=== PATIENT | male | born 1960 | race Caucasian/White ===

== ENCOUNTER 2024-01-07 13:32 | Outpatient (AMB) | payer OTHER, SELFPAY ==
[2024-01-07 13:40] VITALS: BP 180/98; PULSE 87; O2SAT 98; BMI 30.7
--- NOTE | 2024-01-07 13:40 | MHC.PC.OV ---
Vital Signs 01/07/24 13:40 01/07/24 14:18 Height 5 ft 5.94 in Weight 190 lb BMI 30.7 BP 180/98 H 190/100 H Blood Pressure Location Lt brachial Lt brachial Position Sitting Sitting Pulse 87 Pulse Source Pulse Oximeter Pulse Oximetry (%) 98 Oxygen Delivery Method Room Air Intake Visit Reasons: New patient Establish care Fitness Technician Required: No Palm And Back Forger: Not Required per policy Accompanied by: Self / Same As Patient Allergies bee pollen [BEE STINGS] Allergy (Unknown, Verified 01/07/24 14:09) SWELLING Bee sting Allergy (Unknown, Uncoded 01/07/24 14:09) anaphylaxis Medication List - Last Reconciled 01/07/24 by Les Wells MD No Known Home Meds Tobacco use date assessed: 01/07/24 Dental Screening Dental Screen Date: 01/07/24 Did you have a dental visit in the last 12 months?: No Did you have a dental problem in the last 6 months where you did not have access to dental care?: No Was dental information given to patient?: Patient has dentist HPI New patient Establish care HPI Details Patient comes in today to REestablish care - he was last seen here on 06/03/2019 States that he currently feels okay except for increased right shoulder pain, which has been going on for a while now He does not recall any recent injury or trauma to his shoulder He denies any headaches or dizziness He denies any chest pains, no SOB No nausea/vomiting, no abdominal pain No change in bowel habits noted He denies any acute urinary symptoms He had his screening colonoscopy last done with Dr. Negron back on 12/12/2016 - is recommended to get repeat colonoscopy in 10 years (2026) [facility] Medical History (Updated 01/31/24 @ 16:11 by Les Wells MD) Obesity (BMI 30-39.9) Dyslipidemia Surgical History (Updated 01/31/24 @ 16:05 by Les Wells MD) History of excision of lesion History of facial surgery History of lumbar spinal fusion Hx of fusion of cervical spine Hx of colonoscopy Family History (Updated 01/31/24 @ 15:57 by Les Wells MD) Father Cancer of kidney Pericarditis Mother Lung cancer Other Cancer Social History (Updated 01/31/24 @ 16:10 by Les Wells MD) Alcohol intake: current Alcohol intake frequency: holidays/special occasions only Patient Tobacco Use Status: Former Tobacco user e-Cigarette/Vaping Use: Never Used service: No Current occupational status: employed Cognitive needs: No Hearing needs: No Vision needs: Yes (glasses) Questionnaire PHQ-9 Over the last 2 weeks, how often have you been bothered by any of the following problems? 1. Little interest or pleasure in doing things: not at all 2. Feeling down, depressed, or hopeless: not at all 3. Trouble falling or staying asleep, or sleeping too much: not at all 4. Feeling tired or having little energy: not at all 5. Poor appetite or overeating: not at all 6. Feeling bad about yourself - or that you are a failure or have let yourself or your family down: not at all 7. Trouble concentrating on things, such as reading the newspaper or watching television: not at all 8. Moving or speaking so slowly that other people could have noticed. Or the opposite - being so fidgety or restless that you have been moving around a lot more than usual: not at all 9. Thoughts that you would be better off or of hurting yourself in some way: not at all Total score: 0 Depression Screening Interpretation: Negative Depression Screening Done: Yes 24639 - PHQ-9 Billing: Yes Source: Developed by Drs. Jimmie Rivera, Cynthia Degroot, Lázaro Finney and colleagues, with an educational desirae from [employer]. Thrive Questionnaire Date Thrive assessed: 01/07/24 I am a: Patient What is your living situation today?: I have a steady place to live Within the past 12 months, did the food you bought not last and you didn't have the money to get more?: Never true Within the past 12 months, did you worry whether your food would run out before you got money to buy more?: Never true Do you have trouble paying for medicines?: No Do you have trouble getting transportation to medical appointments?: No Do you have trouble paying your heating and electricity bill?: No Do you have trouble taking care of your child, family member or friend?: No Do you have trouble with day-to-day activities such as bathing, preparing meals, shopping, managing finances, etc.?: No Are you currently unemployed and looking for a job?: No Are you interested in more education?: No Please select the resources that you would like help with: None Currently or been in a relationship where the following occur: no concerns reported THRIVE Score: 0 AUDIT C Alcohol Use Questionnaire (AUDIT-C) 1. How often do you have a drink containing alcohol?: Never 3. How often do you have six or more drinks on one occasion?: Never Total Score: 0 Score Reviewed/Action Taken: Yes ADAMARIS-7 AMB Questionnaire ADAMARIS-7 Date ADAMARIS - 7 assessed: 01/07/24 Feeling nervous, anxious, or on edge: 0 = Not at all Not being able to stop or control worryin = Not at all Worrying too much about different things: 0 = Not at all Trouble relaxin = Not at all Being so restless that it is hard to sit still: 0 = Not at all Becoming easily annoyed or irritable: 0 = Not at all Feeling afraid as if something awful might happen: 0 = Not at all Total ADAMARIS-7 score (0-4 normal; 5-9 mild; 10-14 moderate; 15-21 severe): 0 Source: Developed by Drs. Jimmie Rivera, Cynthia Degroot, Lázaro Finney and colleagues, with an educational desirae from [employer]. Review of Systems Const Denies chills, Denies fatigue, Denies fever(s), Denies headache(s), Denies malaise and Denies weakness Eyes Denies blurry vision, Denies change in vision, Denies irritation and Denies itchy eyes ENT Denies dysphagia, Denies dizziness, Denies otalgia, Denies headache(s), Denies nasal congestion, Denies neck pain, Denies odynophagia and Denies sore throat Card Denies chest pain, Denies rapid heart rate, Denies irregular heart rhythm, Denies palpitations and Denies dyspnea Resp Denies chest congestion, Denies cough, Denies dyspnea and Denies wheezing GI Denies abdominal pain, Denies bloating, Denies constipation, Denies dysphagia, Denies heartburn, Denies diarrhea, Denies nausea, Denies odynophagia and Denies vomiting Denies hematuria, Denies difficulty urinating, Denies dysuria, Denies urinary frequency and Denies urinary urgency Musc Denies back pain, Reports arthralgias (right shoulder), Denies joint swelling, Denies muscle weakness and Denies neck pain Skin/Breast Denies change in pigmentation, Denies lesions, Denies rash and Denies unusual bruising Neuro Denies dizziness, Denies headache(s), Denies paresthesias and Denies weakness Endo Denies fatigue and Denies palpitations Aller/Immun Denies itchy eyes and Denies wheezing Physical exam (Primary Care) Vital Signs: Last Vital Signs Pulse 87 01/07/24 13:40 BP 190/100 H 01/07/24 14:18 Pulse Ox 98 01/07/24 13:40 Oxygen Delivery Method Room Air 01/07/24 13:40 BMI result Body Mass Index 30.7 Tobacco/Smoking Status: Tobacco use Status Tobacco use date assessed 01/07/24 01/07/24 13:50 Patient Tobacco Use Status Former Tobacco user 01/07/24 13:50 e-Cigarette/Vaping Use Never Used 01/07/24 13:50 PHQ-9: PHQ-9 Score PHQ-9: Total score 0 01/07/24 14:16 Depression Screening Interpretation: Negative Thrive Assessment: Date of Thrive Assessment Date Thrive assessed 01/07/24 01/07/24 13:50 Currently or been in a relationship where the following occur: no concerns reported Const General: no acute distress, alert and awake Orientation/consciousness: patient oriented x3 HENMT Head: Yes normocephalic and Yes atraumatic Ears: external ears normal, TM's normal bilaterally and EAC's normal General nose exam: No nasal discharge present Face and sinus: Yes normal facial exam and Yes sinuses nontender Teeth and gingiva: dentition normal Throat: Yes posterior oropharynx normal and Yes tonsils normal (no TP congestion) Eyes Eyelids: Yes eyelids normal Conjunctivae: conjunctivae normal Pupils: Equal, round and reactive pupils present EOM: EOMs intact bilaterally Neck Neck: Yes no lymphadenopathy and Yes supple Thyroid: Thyroid normal Resp Auscultation: clear to auscultation bilaterally, no rales and no wheezes Cardio Rate: regular rate Rhythm: regular rhythm Heart sounds: no murmurs GI Palpation (GI): Soft to palpation, nontender and No hepatosplenomegaly present Auscultation: normal bowel sounds General: Yes no CVA tenderness Back/Spine/Pelvis Back: no CVA tenderness Thoracic/Lumbar Spine: thoracic and lumbar spine normal to inspection Skin Lesions: no lesions Rashes: no rashes Neuro General: patient oriented x3, moves all extremities, no focal motor deficits and CN's II-XI intact bilaterally Cranial nerves: Yes Equal, round and reactive pupils present Cognition (Neuro): normal cognition Gait exam (Neuro): Normal gait present Extrem General: Yes no clubbing, cyanosis or edema Right upper extremity: shoulder/upper arm Details: tenderness Location: of the A-C joint and normal ROM; no swelling Assessment and Plan Assessment & Plan (1) Annual physical exam: Code(s): Z00.00 - Encounter for general adult medical examination without abnormal findings Plan: Check labs He is up-to-date with his screening colonoscopy - is not due for repeat until 2026 (2) Elevated blood pressure reading without diagnosis of hypertension: Code(s): R03.0 - Elevated blood-pressure reading, without diagnosis of hypertension Plan: Discussed low sodium diet - goal is systolic BP of 120 mm or less Have advised patient to continue monitoring his blood pressure regularly but will have our nurse navigator check back with him as well for BP monitoring and education (3) Dyslipidemia: Code(s): E78.5 - Hyperlipidemia, unspecified Plan: Reinforced low cholesterol diet Will recheck his fasting lipids HUGO for follow up (4) Right shoulder pain: Code(s): M25.511 - Pain in right shoulder Qualifiers: Chronicity: unspecified Qualified Code(s): M25.511 - Pain in right shoulder Plan: Will send him for x-rays of the right shoulder for further evaluation (5) Obesity (BMI 30-39.9): Code(s): E66.9 - Obesity, unspecified Plan: Reinforced diet/exercise as tolerated/lose weight Plan Follow up in 4 months Orders: Orders Comprehensive Corea. Panel Fast 01/12/24 E78.00 - Pure hypercholesterolemia, unspecified, Z00.00 - Encounter for general adult medical examination without abnormal findings Lipid Panel 01/12/24 E78.00 - Pure hypercholesterolemia, unspecified, Z00.00 - Encounter for general adult medical examination without abnormal findings UA CC w/rflx Micro + Cult 01/12/24 R30.0 - Dysuria, Z00.00 - Encounter for general adult medical examination without abnormal findings Prostate Specific Antigen 01/12/24 N40.0 - Benign prostatic hyperplasia without lower urinary tract symptoms, Z00.00 - Encounter for general adult medical examination without abnormal findings Hemoglobin A1c 01/12/24 E11.9 - Type 2 diabetes mellitus without complications, Z00.00 - Encounter for general adult medical examination without abnormal findings XR shoulder RT min 2V 01/07/24 M25.511 - Pain in right shoulder Complete Blood Count Auto Diff 01/12/24 D64.9 - Anemia, unspecified, Z00.00 - Encounter for general adult medical examination without abnormal findings TSH reflex Free T4 01/12/24 E78.00 - Pure hypercholesterolemia, unspecified, Z00.00 - Encounter for general adult medical examination without abnormal findings Vitamin D 25-OH Total 01/12/24 E55.9 - Vitamin D deficiency, unspecified, Z00.00 - Encounter for general adult medical examination without abnormal findings Coding Level of Care Code New Pt Prev Care 40-64y(90161) Diagnoses Annual physical exam Z00.00 Elevated blood pressure reading without diagnosis of hypertension R03.0 Dyslipidemia E78.5 Right shoulder pain, unspecified chronicity M25.511 Chronicity: unspecified Obesity (BMI 30-39.9) E66.9
[2024-01-07 14:18] VITALS: BP 190/100
== END 2024-01-07 14:33 | disposition home or self-care (01) ==
PROVIDERS: PCP Internal Medicine; Visit Provider Internal Medicine
DX: Z00.00 Encounter for general adult medical examination without abnormal findings (principal); R03.0 Elevated blood-pressure reading, without diagnosis of hypertension; E78.5 Hyperlipidemia, unspecified; M25.511 Pain in right shoulder
CPT/HCPCS: 99386

== ENCOUNTER 2024-01-07 14:40 | Outpatient (REF) | payer OTHER, SELFPAY ==
--- NOTE | ~2024-01-07 | XR_ITS ---
EXAMINATION: XR SHOULDER, RIGHT CLINICAL INFORMATION: Right shoulder pain. COMPARISON: None available. TECHNIQUE: 3 views of the right shoulder. FINDINGS: Alignment is anatomic. Mild glenohumeral and moderate acromioclavicular degenerative changes. No fracture or suspicious osseous lesion. The visualized right chest is clear. XR/XR shoulder RT min 2V IMPRESSION: Mild glenohumeral and moderate acromioclavicular osteoarthritis.
== END 2024-01-07 14:41 | disposition home or self-care (01) ==
LOC: HO.XRAY 14:40
PROVIDERS: PCP Internal Medicine; Visit Provider Internal Medicine
DX: M25.511 Pain in right shoulder (principal)
CPT/HCPCS: 73030

== ENCOUNTER 2024-01-12 07:03 | Outpatient (REF) | payer OTHER, SELFPAY ==
[2024-01-12 07:12] LABS: MANUAL DIFF FLAG NO
[2024-01-12 07:53] LABS: Basophils Absolute Auto 0.1 X10*3/uL (0.0-0.2); Basophils Percent Auto 0.5 % (0-2); Eosinophils Absolute Auto 0.3 X10*3/uL (0.0-0.4); Hematocrit 46.3 % (42.0-52.0); Hemoglobin 15.7 g/dl (14.0-18.0); Imm Gran Abs Auto 0.06 X10*3/uL (0.00-0.03); Imm Gran Pct Auto 0.6 % (0.0-0.4); Lymphocytes Absolute Auto 3.8 X10*3/uL (1.2-4.9); Lymphocytes Percent Auto 39.4 % (20-40); Mean Corpuscular HGB Conc 33.9 g/dl (31.0-36.0); Mean Corpuscular Hemoglobin 33.3 pg (27.0-33.0); Mean Corpuscular Volume 98.3 fL (80.0-98.0); Mean Platelet Volume 9.7 fL (9.4-12.4); Monocytes Absolute Auto 0.8 X10*3/uL (0.1-1.2); Neutrophils Absolute Auto 4.7 x10*3/uL (2.0-8.3); Neutrophils Percent Auto 48.5 % (45-73); Platelet Count 318 X10*3/uL (160-400); Red Blood Count 4.71 X10*6/uL (4.60-5.80); Red Cell Distribution Width 12.4 % (11.0-16.0); White Blood Count 9.7 X10*3/uL (4.8-10.8)
[2024-01-12 08:01] LABS: Estimated Average Glucose 108 mg/dL; Hemoglobin A1c % 5.4 % (<6.0)
[2024-01-12 08:49] LABS: Alanine Aminotransferase 23 U/L (0-40); Albumin Level 4.5 g/dL (3.5-5.0); Alkaline Phosphatase 82 U/L (39-117); Anion Gap 14 (12-20); Aspartate Amino Transferase 23 U/L (5-37); Bilirubin Total 0.6 mg/dL (0.0-1.0); Blood Urea Nitrogen 16 mg/dL (9-16); Carbon Dioxide 24 mmol/L (22-29); Chloride 107 mmol/L (96-108); Cholesterol 189 mg/dL (<200); Estimated Glomerular Filt Rate > 60; Glucose Fasting 114 mg/dL (60-99); HDL Cholesterol 47 mg/dL (>40); LDL Cholesterol Calculated 132 mg/dL (<100); Potassium 3.9 mmol/L (3.3-5.1); Sodium 141 mmol/L (135-145); Total Protein 7.2 g/dL (6.5-8.0); Triglycerides 53 mg/dL (<150)
[2024-01-12 08:56] LABS: Prostate Specific Antigen 7.44 ng/mL (<0.05-4.0)
[2024-01-12 09:12] LABS: TSH reflex Free T4 0.94 uIU/mL (0.32-4.0); Vitamin D 25-OH Total 22.8 ng/mL (>30)
[2024-01-12 09:39] LABS: Appearance Urine Clear; Color Urine Yellow; Glucose Urine UA Negative (Negative); Leukocyte Esterase Urine Negative (Negative); Nitrite Urine Negative (Negative); Urine Blood Negative (Negative); Urine Ketones Negative (Negative); Urine Protein Negative (Neg-Trace)
== END 2024-01-12 07:04 | disposition home or self-care (01) ==
LOC: HO.LAB 07:03
PROVIDERS: PCP Internal Medicine; Visit Provider Internal Medicine
DX: R30.0 Dysuria (principal); Z00.00 Encounter for general adult medical examination without abnormal findings; N40.0 Benign prostatic hyperplasia without lower urinary tract symptoms; D64.9 Anemia, unspecified; E78.00 Pure hypercholesterolemia, unspecified; E55.9 Vitamin D deficiency, unspecified; E11.9 Type 2 diabetes mellitus without complications; Z12.5 Encounter for screening for malignant neoplasm of prostate
CPT/HCPCS: 36415; 80053; 80061; 81003; 82306; 83036; 84153; 84443; 85025

== ENCOUNTER 2024-02-08 15:03 | Outpatient (AMB) | payer OTHER, SELFPAY ==
--- NOTE | 2024-02-08 15:42 | A.OFFVIS_ITS ---
Intake Visit Reasons: elevated PSA Intake Note: New patient is present for Elevated PSA Antibiotic Allergies: None Allergies bee pollen [BEE STINGS] Allergy (Unknown, Verified 02/26/24 14:25) SWELLING Bee sting Allergy (Unknown, Uncoded 02/26/24 14:25) anaphylaxis HPI Comments Details: Yefri is a pleasant male. He is a patient of Dr. Wells. He is seen for the following urologic conditions Elevated PSA Discussed options including biopsy Versus trial finasteride He would like to move ahead with finasteride trial of 4 month follow-up PSA Understands no coffee the morning of test and no sex the night before Elevated PSA PSA 01/17 7.4 PFSH Medical History (Updated 02/27/24 @ 07:46 by Daniel Lopez MD) Obesity (BMI 30-39.9) Dyslipidemia Surgical History (Updated 01/31/24 @ 16:05 by Les Wells MD) History of excision of lesion History of facial surgery History of lumbar spinal fusion Hx of fusion of cervical spine Hx of colonoscopy Family History (Updated 01/31/24 @ 15:57 by Les Wells MD) Father Cancer of kidney Pericarditis Mother Lung cancer Other Cancer Social History (Updated 01/31/24 @ 16:10 by Les Wells MD) Alcohol intake: current Alcohol intake frequency: holidays/special occasions only Patient Tobacco Use Status: Former Tobacco user e-Cigarette/Vaping Use: Never Used service: No Current occupational status: employed Cognitive needs: No Hearing needs: No Vision needs: Yes (glasses) Review of Systems Const Denies chills and Denies fever(s) Card Reports no additional complaints and Denies syncope Resp Denies cough GI Denies abdominal pain and Denies heartburn Reports as per HPI and Denies change in libido Neuro Denies syncope Psych Denies change in libido Endo Denies change in libido Physical Exam Const General: cooperative, healthy appearing, comfortable and no acute distress Orientation/consciousness: patient oriented x3 HEENT Face and sinus: Yes normal facial exam Mouth: moist mucous membranes Neck Neck: Yes normal visual inspection, Yes full ROM and Yes trachea midline Chest Chest palpation & inspection: normal inspection of the chest Resp Effort & Inspection: normal respiratory effort, able to speak in complete sentences and no respiratory distress GI Inspection: Yes normal to inspection Back/Spine/Pelvis Cervical Spine: normal cervical lordosis Thoracic/Lumbar Spine: thoracic and lumbar spine normal to inspection Skin General skin exam: no rashes or lesions noted Neuro General: patient oriented x3, gait normal, tone normal and moves all extremities Extrem General: Yes normal to inspection and Yes capillary refill normal Assessment & Plan Assessment & Plan (1) Elevated prostate specific antigen less than 10 ng/ml: Code(s): R97.20 - Elevated prostate specific antigen [PSA] Category: Medical Plan Finasteride 4 month follow-up PSA Orders: Orders Prostate Specific Antigen 4 Months R97.20 - Elevated prostate specific antigen [PSA] Medications: New finasteride 5 mg PO DAILY 90 tabs 1RF 90 days R97.20 - Elevated prostate sp ecific antigen [PSA], N40.1 - Benign prostatic hyperplasia with lower urinary tract symptoms, N13.8 - Other obstructive and reflux uropathy, R33.9 - Retention of urine, unspecified Patient Instructions: Imaging studies, laboratory and physical exam results were discussed and reviewed in detail. No major barriers to patient understanding were identified. An opportunity to ask questions regarding the treatment plan was provided. All questions were answered. The patient expressed understanding and agreement with the above treatment plan. The patient is aware they should contact our office by phone for worsening of their current condition or the appearance of new urologic symptoms. Compliance is encouraged with any medications and followup testing that is ordered. It is a privilege to participate in the urologic care of your patient. If you have any questions or concerns regarding treatment for the above conditions, or other urologic issues, please do not hesitate to contact me. The office telephone contact is [phone]. This note is constructed using voice recognition software. While every effort has been made to ensure accuracy voip network technician errors may have been included. Yours sincerely, Dr Froy Boswell MD, [facility] - Urology Providers of Expert, Compassionate Care for the Genitourinary System Coding Level of Care Code New Pt Level 4 (21306) Diagnoses Elevated prostate specific antigen less than 10 ng/ml R97.20
== END 2024-02-08 16:34 | disposition home or self-care (01) ==
PROVIDERS: PCP Internal Medicine; Visit Provider Urology
DX: R97.20 Elevated prostate specific antigen [PSA] (principal)
CPT/HCPCS: 99204

== ENCOUNTER → 2024-02-08 15:03 | Outpatient (BNVA) | payer OTHER, SELFPAY | PROVIDERS: PCP Internal Medicine; Visit Provider Urology ==

== ENCOUNTER 2024-02-26 14:20 | Outpatient (AMB) | payer OTHER, SELFPAY ==
--- NOTE | 2024-02-26 14:25 | A.OFFVIS_ITS ---
Intake Visit Reasons: New Pt - right shoulder pain Intake Note: Yefri is a 63 year old male who presents today as a new patient with complaints of progressively worsening right shoulder pain. He describes his pain as sharp in nature. Most of the pain is along the lateral aspect of his right shoulder. He does report intermittent weakness when lifting his right hand above shoulder height. The patient states that he aggravated his shoulder in July of 2023 when his right shoulder hyperextended when he slipped while lifting a big sign over his head. He has done physical therapy exercises which aggravated his pain. He has also tried Tylenol and anti-inflammatory medicines which gave him minimal relief. injections. Allergies bee pollen [BEE STINGS] Allergy (Unknown, Verified 02/26/24 14:25) SWELLING Bee sting Allergy (Unknown, Uncoded 02/26/24 14:25) anaphylaxis Medication List - Last Reconciled 02/27/24 by Daniel Lopez MD cholecalciferol (vitamin D3) 50 mcg PO DAILY 90 days finasteride 5 mg PO DAILY 90 days [facility] Medical History (Updated 02/27/24 @ 07:46 by Daniel Lopez MD) Obesity (BMI 30-39.9) Dyslipidemia Surgical History (Updated 01/31/24 @ 16:05 by Les Wells MD) History of excision of lesion History of facial surgery History of lumbar spinal fusion Hx of fusion of cervical spine Hx of colonoscopy Family History (Updated 01/31/24 @ 15:57 by Les Wells MD) Father Cancer of kidney Pericarditis Mother Lung cancer Other Cancer Social History (Updated 01/31/24 @ 16:10 by Les Wells MD) Alcohol intake: current Alcohol intake frequency: holidays/special occasions only Patient Tobacco Use Status: Former Tobacco user e-Cigarette/Vaping Use: Never Used service: No Current occupational status: employed Cognitive needs: No Hearing needs: No Vision needs: Yes (glasses) Physical Exam Const Other: Well-nourished well-developed very friendly male awake alert and oriented x3 in no acute distress Extrem Other: Bilateral upper extremity examination shows good capillary refill, no skin lesions noted, normal sensation light touch Right shoulder examination shows full range of motion when compared to his left shoulder, 4+ out of 5 strength with supraspinatus testing, positive impingement signs, no instability Office Procedures Joint Injection/Drain Joint Injection/Drain Primary Site: right shoulder Prep: site was prepped using aseptic technique Injected: 40 mg of, DepoMedrol and 1% plain lidocaine Procedure: The patient tolerated the procedure well Coding - Large joint Procedure code (CPT) selection complete Results Reviewed Results Reviewed: X-rays of the patient's right shoulder show severe acromioclavicular joint narrowing, a type 2 acromion, no acute bony abnormalities Assessment & Plan Assessment & Plan (1) Impingement of right shoulder: Code(s): M25.811 - Other specified joint disorders, right shoulder Category: Medical Plan Mr. Benz presents with right shoulder pain due to impingement syndrome. I had a lengthy discussion with the patient regarding the treatment options. The risks and benefits of a right shoulder cortisone injection were discussed at length with the patient. The patient wished to proceed. He tolerated the injection well. He will continue with his range of motion exercises to prevent stiffness. He will follow up with me on an as-needed basis should his symptoms not plateau at an unacceptable level over the next few months. Feel free to call me at any time should questions regarding his orthopedic management arise. Thank you very much for asking me to see this very friendly gentleman. I spent 22 minutes in reviewing the patient's records and imaging studies, seeing the patient and documenting in the medical record. Orders: Orders AMB Joint Injection/Aspiration 02/26/24 M25.811 - Other specified joint disorders, right shoulder Coding Level of Care Code New Pt Level 3 (03526) Diagnoses Impingement of right shoulder M25.811 CPT Codes Coding - Large joint: 38242 - Large joint ([id number])
== END 2024-02-26 15:01 | disposition home or self-care (01) ==
PROVIDERS: PCP Internal Medicine; Visit Provider Orthopaedic Surgery
DX: M75.42 Impingement syndrome of left shoulder (principal)
CPT/HCPCS: 20610; 99203

== ENCOUNTER → 2024-02-26 14:20 | Outpatient (BNVA) | payer OTHER, SELFPAY | PROVIDERS: PCP Internal Medicine; Visit Provider Orthopaedic Surgery | DX: M75.41 Impingement syndrome of right shoulder (principal) | CPT/HCPCS: 20610; J1010 ==

== ENCOUNTER 2024-05-02 18:10 | Outpatient (REF) | payer OTHER, SELFPAY ==
--- NOTE | ~2024-05-02 | MR_ITS ---
EXAMINATION: MR SHOULDER WITHOUT CONTRAST, RIGHT CLINICAL INFORMATION: Right shoulder pain and crepitus. COMPARISON: Right shoulder radiographs dated 01/07/2024. TECHNIQUE: MRI of the shoulder without contrast was performed on a high-field scanner. FINDINGS: Evaluation somewhat limited secondary to patient motion. ROTATOR CUFF: Moderate infraspinatus tendinosis with articular surface partial tearing measuring approximately 2.7 x 2.0 cm with a small, full-thickness component to the tear posteriorly. Fluid signal extends proximally along the bursal surface of the posterior tendon fibers. Mild supraspinatus tendinosis. Moderate subscapularis tendinosis with distal articular surface partial tearing measuring 3.4 cm in ML dimension. No muscle atrophy or fatty infiltration. BICEPS: Fluid within the proximal long head biceps tendon sheath, which could represent mild tenosynovitis. Intra-articular long head biceps tendinosis. CORACOACROMIAL ARCH: The undersurface of the acromion is flat with no subacromial spur. Severe acromioclavicular osteoarthritis. LABRUM/CAPSULE: Linear fluid signal within the undersurface of the superior and posterosuperior labrum, consistent with a nondisplaced undersurface tear. Intact inferior joint capsule. GLENOHUMERAL JOINT/MARROW: Mild reticular cartilage signal heterogeneity with tiny marginal osteophytes. Degenerative cystic change at the greater tuberosity. Trace glenohumeral joint effusion. MR/MR shoulder RT wo con IMPRESSION: 1. Moderate infraspinatus tendinosis with articular surface partial tearing measuring 2.7 x 2.0 cm with a small full-thickness component to the tear posteriorly. Fluid signal extends proximally along the bursal surface of the posterior tendon fibers. Mild supraspinatus tendinosis. Moderate subscapularis tendinosis with distal articular surface partial tearing measuring 3.4 cm in ML dimension. 2. Mild proximal long head biceps tenosynovitis with intra-articular long head biceps tendinosis. 3. Severe acromioclavicular osteoarthritis. 4. Nondisplaced undersurface tear of the superior and posterosuperior labrum. 5. Mild glenohumeral osteoarthritis and trace joint effusion. Electronically signed by: James Zamudio MD 05/06/2024 12:18 PM EDT
== END 2024-05-02 18:11 | disposition home or self-care (01) ==
LOC: HO.MRI 18:10
PROVIDERS: PCP Internal Medicine; Visit Provider Orthopaedic Surgery
DX: M25.811 Other specified joint disorders, right shoulder (principal)
CPT/HCPCS: 73221

== ENCOUNTER 2024-05-31 07:07 | Outpatient (REF) | payer OTHER, SELFPAY | END 2024-05-31 07:08 | disposition home or self-care (01) | LOC: HO.LAB 07:07 | PROVIDERS: PCP Internal Medicine; Visit Provider Urology | DX: R97.20 Elevated prostate specific antigen [PSA] (principal); Z12.5 Encounter for screening for malignant neoplasm of prostate | CPT/HCPCS: 36415; 84153 ==

== ENCOUNTER 2024-06-05 14:35 | Outpatient (AMB) | payer OTHER, SELFPAY ==
--- NOTE | 2024-06-05 14:37 | MHC.OFFVIS ---
Intake Visit Reasons: Right shoulder pain and weakness Intake Note: Yefri is a 63 year old male who presents with complaints of progressively worsening right shoulder pain and weakness. The patient describes his pain as sharp and severe in nature. Most of the pain is along the lateral aspect of his right shoulder. The patient does do quite a bit of physical activity at work. His symptoms have gotten worse over the last year in spite of continued non operative treatments. He did aggravate his right shoulder in July of 2023 when his right shoulder hyperextended when he slipped while lifting a large sign over his head. Since that time he has had difficulty lifting his right hand above shoulder height. He did have a cortisone injection earlier this year which gave him minimal relief. He has tried physical therapy exercises which aggravated his pain. He has also tried Tylenol and anti-inflammatory medicines which gave him minimal relief. Allergies bee pollen [BEE STINGS] Allergy (Unknown, Verified 06/05/24 14:42) SWELLING Bee sting Allergy (Unknown, Uncoded 02/26/24 14:25) anaphylaxis Medication List - Last Reconciled 06/06/24 by Daniel Lopez MD cholecalciferol (vitamin D3) 50 mcg PO DAILY 90 days finasteride 5 mg PO DAILY 90 days COUNTS INCLUDE 234 BEDS AT THE [facility] Medical History Obesity (BMI 30-39.9) Dyslipidemia Surgical History History of excision of lesion History of facial surgery History of lumbar spinal fusion Hx of fusion of cervical spine Hx of colonoscopy Family History Father Cancer of kidney Pericarditis Mother Lung cancer Other Cancer Social History Alcohol intake: current Alcohol intake frequency: holidays/special occasions only Patient Tobacco Use Status: Former Tobacco user e-Cigarette/Vaping Use: Never Used service: No Current occupational status: employed Cognitive needs: No Hearing needs: No Vision needs: Yes (glasses) Physical Exam Const Other: Well-nourished well-developed very friendly male awake alert and oriented x3 in no acute distress Extrem Other: Bilateral upper extremity examination shows good capillary refill, no skin lesions noted, normal sensation light touch Right shoulder examination shows almost full range of motion when compared to his left shoulder, 4/5 strength with supraspinatus testing, positive impingement signs, tenderness over his acromioclavicular joint, no instability Results Reviewed Results Reviewed: MRI of the patient's right shoulder show severe acromioclavicular joint narrowing, a type 3 acromion, a small full-thickness tear of the supraspinatus tendon Assessment & Plan Assessment & Plan (1) Impingement of right shoulder: Code(s): M25.811 - Other specified joint disorders, right shoulder Category: Medical Plan Mr. Benz presents with right shoulder pain and weakness due to impingement syndrome, acromioclavicular joint arthritis and a small full-thickness rotator cuff tear. I had a lengthy discussion patient regarding the treatment options. At this point he has failed continued non operative treatments. The risks and benefits of right shoulder surgery were discussed at length with the patient. The patient wishes to proceed with surgery. He will contact my office to pick a surgery date. Surgery will most likely involve right shoulder diagnostic arthroscopy with distal clavicle excision, acromioplasty and rotator cuff repair. The patient will follow-up as instructed. Feel free to call me at any time should questions regarding his orthopedic management arise. Feel free to call me at any time should questions regarding his orthopedic management arise. I spent 22 minutes in reviewing the patient's records and imaging studies, seeing the patient and documenting in the medical record. Coding Level of Care Code Est Pt Level 3 (23326) Complex EM visit Add On G2211 Diagnoses Impingement of right shoulder M25.811
== END 2024-06-05 15:02 | disposition home or self-care (01) ==
PROVIDERS: PCP Internal Medicine; Visit Provider Orthopaedic Surgery
DX: M25.811 Other specified joint disorders, right shoulder (principal)
CPT/HCPCS: 99214

== ENCOUNTER → 2024-06-05 14:35 | Outpatient (BNVA) | payer OTHER, SELFPAY | PROVIDERS: PCP Internal Medicine; Visit Provider Orthopaedic Surgery ==

== ENCOUNTER 2024-06-20 10:23 | Outpatient (AMB) | payer OTHER, SELFPAY ==
[2024-06-20 10:33] VITALS: BP 178/86; PULSE 80; O2SAT 97; BMI 30.9
--- NOTE | 2024-06-20 10:33 | MHC.PC.OV ---
Vital Signs 06/20/24 10:33 06/20/24 10:59 Height 5 ft 5.94 in Weight 191 lb 6 oz BMI 30.9 BP 178/86 H 148/80 H Blood Pressure Location Lt brachial Lt brachial Position Sitting Pulse 80 Pulse Source Pulse Oximeter Pulse Oximetry (%) 97 Oxygen Delivery Method Room Air Intake Visit Reasons: rt shlder arthroscopyRTC repair Dr. Lopez 07/11/24 Statistical Assistant Required: No Accompanied by: Self / Same As Patient Allergies bee pollen [BEE STINGS] Allergy (Unknown, Verified 06/20/24 10:42) SWELLING Bee sting Allergy (Unknown, Uncoded 06/20/24 10:42) anaphylaxis Medication List - Last Reconciled 06/20/24 by Rupal Inman PA-C cholecalciferol (vitamin D3) 50 mcg PO DAILY 90 days Tobacco use date assessed: 01/07/24 Dental Screening Dental Screen Date: 01/07/24 HPI rt shlder arthroscopyRTC repair Dr. Lopez 07/11/24 HPI Details 64-year-old male with past medical history of dyslipidemia and obesity last seen by Dr. Wells coming to the office for preoperative evaluation.?Patient is scheduled to have a right shoulder arthroscopy RTC repair with Dr. Lopez 07/11/2024. Dyslipidemia: WNL Not currently on medical management. Patient has no history of CVA, [place], CHF and is a nondiabetic. Has history of white coat hypertension. Has had surgery/anesthesia in the past without complication. [facility] Medical History Obesity (BMI 30-39.9) Dyslipidemia Surgical History History of excision of lesion History of facial surgery History of lumbar spinal fusion Hx of fusion of cervical spine Hx of colonoscopy Family History Father Cancer of kidney Pericarditis Mother Lung cancer Other Cancer Social History Alcohol intake: current Alcohol intake frequency: holidays/special occasions only Patient Tobacco Use Status: Former Tobacco user e-Cigarette/Vaping Use: Never Used service: No Current occupational status: employed Cognitive needs: No Hearing needs: No Vision needs: Yes (glasses) Questionnaire Thrive Questionnaire Date Thrive assessed: 01/07/24 AUDIT C Alcohol Use Questionnaire (AUDIT-C) 2. How many drinks containing alcohol do you have on a typical day when you are drinking?: 1 or 2 3. How often do you have six or more drinks on one occasion?: Never Total Score: 0 ADAMARIS-7 AMB Questionnaire ADAMARIS-7 Date ADAMARIS - 7 assessed: 01/07/24 Source: Developed by Drs. Jimmie Rivera, Cynthia Degroot, Lázaro Finney and colleagues, with an educational desirae from [employer]. Review of Systems Const Denies body aches, Denies fatigue, Denies fever(s), Denies frequent falls, Denies headache(s) and Denies weakness Eyes Reports no additional complaints and Denies change in vision ENT Denies dizziness, Denies facial pain, Denies headache(s) and Denies nasal congestion Card Denies chest pain, Denies syncope, Denies irregular heart rhythm, Denies leg edema, Denies lightheadedness and Denies dyspnea Resp Denies cough and Denies dyspnea GI Denies abdominal pain, Denies constipation, Denies dyspepsia, Denies diarrhea, Denies nausea and Denies vomiting Denies dysuria, Denies urinary frequency, Denies urinary hesitancy and Denies urinary urgency Musc Denies back pain and Denies myalgias Skin/Breast Reports system reviewed and no additional complaints, except as documented Neuro Denies dizziness, Denies syncope, Denies frequent falls, Denies headache(s) and Denies weakness Psych Reports no additional complaints Endo Denies fatigue Physical exam (Primary Care) Vital Signs: Last Vital Signs Pulse 80 06/20/24 10:33 BP 178/86 H 06/20/24 10:33 Pulse Ox 97 06/20/24 10:33 Oxygen Delivery Method Room Air 06/20/24 10:33 BMI result Body Mass Index 30.9 Tobacco/Smoking Status: Tobacco use Status Tobacco use date assessed 01/07/24 06/20/24 10:34 Patient Tobacco Use Status Former Tobacco user 06/20/24 10:34 e-Cigarette/Vaping Use Never Used 06/20/24 10:34 Thrive Assessment: Date of Thrive Assessment Date Thrive assessed 01/07/24 06/20/24 10:34 Const General: cooperative, healthy appearing, comfortable and no acute distress Orientation/consciousness: patient oriented x3 HENMT Head: Yes normocephalic Ears: hearing grossly normal bilaterally, external ears normal, TM's normal bilaterally and EAC's normal General nose exam: Normal external nose present Face and sinus: Yes normal facial exam and Yes sinuses nontender Mouth: Normal oral and palatal mucosa present and tongue normal Throat: Yes posterior oropharynx normal Eyes General: appearance normal, both eyes and all related structures Conjunctivae: conjunctivae normal Pupils: Equal, round and reactive pupils present EOM: EOMs intact bilaterally and No Nystagmus present Neck Neck: Yes normal visual inspection, Yes full ROM and Yes no lymphadenopathy Chest Chest palpation & inspection: normal inspection of the chest Resp Effort & Inspection: normal respiratory effort Auscultation: clear to auscultation bilaterally, no crackles, no rales, no rhonchi, no wheezes and breath sounds present Cardio Rate: regular rate Rhythm: regular rhythm Peripheral pulses: radial pulses present and dorsalis pedis present GI Inspection: Yes normal to inspection and No Abdominal wall edema Palpation (GI): Soft to palpation, not firm and nontender Auscultation: normal bowel sounds Rectal Exam - Male: Yes deferred General: Yes no CVA tenderness Back/Spine/Pelvis Back: no CVA tenderness Skin General skin exam: no rashes or lesions noted Neuro General: patient oriented x3 Cranial nerves: Yes Equal, round and reactive pupils present, Yes Midline tongue present, Yes Ability to bilaterally elevate shoulders present and No Nystagmus present Gait exam (Neuro): Normal gait present Extrem General: Yes normal to inspection, Yes full ROM, No no pedal edema and No edema Psych Speech and movement: Normal speech and movement present Affect: normal affect Insight: Good insight present (Psych) Judgement: Good judgement present (Psych) Office Procedures Flu Questionnaire Does the patient have a severe egg allergy?: No Immunizations Fluarix Triv [id number] (PF) 45 mcg (15 mcg x 3)/0.5 mL IM syringe Performing Provider: Rupal Inman PA-C [facility] Documented (not given) by: HELLEN Andrade on 06/20/24 10:41 Reason Not Given: Patient Refused Coding Level of Care Code Est Pt Level 4 (81286) Diagnoses Pre-op evaluation Z01.818 Assessment & Plan Assessment & Plan (1) Pre-op evaluation: Code(s): Z01.818 - Encounter for other preprocedural examination Category: Medical Plan: Regarding preop clearance, the patient is at moderate risk for proposed surgery due to age however does not have contributing comorbidities. Reviewed with the patient that no surgery is completely free of risk and that this examination is to assist the surgeon in reviewing informed consent. Patient is nondiabetic, takes no disease modifying drugs and is not currently on any blood thinners and does not routinely take NSAIDs. Discussed with patient he should avoid the use of NSAIDs 7 days prior to his procedure. EKG and blood work ordered an addendum will be added once they have been reviewed. Blood pressure slightly elevated 148/80 in the office today history of white coat hypertension with normal values at home. Did discuss with patient if blood pressure is elevated on day of procedure the procedure may be postponed. Plan This note was constructed using voice recognition software. While every effort has been made to ensure accuracy and veterinary laboratory technician, still areas may have been included sometimes these areas may affect the content or meeting of the given symptoms. Total time spent caring for the patient today was 30 minutes. This includes time spent before the visit reviewing the chart, time spent during the visit, and time spent after the visit and documentation. Orders: Orders Complete Blood Count Auto Diff Today Z00.00 - Encounter for general adult medical examination without abnormal findings Comprehensive Met. Panel Today Z00.00 - Encounter for general adult medical examination without abnormal findings Hemoglobin A1c Today Z00.00 - Encounter for general adult medical examination without abnormal findings ECG 12 lead EKG Today Z01.818 - Encounter for other preprocedural examination Influenza [id number] Immunization Today Z23 - Encounter for immunization
[2024-06-20 10:59] VITALS: BP 148/80
== END 2024-06-20 11:12 | disposition home or self-care (01) ==
PROVIDERS: PCP Internal Medicine
DX: Z23 Encounter for immunization (principal); Z01.818 Encounter for other preprocedural examination

== ENCOUNTER → 2024-06-20 10:23 | Outpatient (BNVA) | payer OTHER, SELFPAY | PROVIDERS: PCP Internal Medicine | DX: Z01.818 Encounter for other preprocedural examination (principal) | CPT/HCPCS: 90471 ==

== ENCOUNTER → 2024-06-26 09:27 | Outpatient (BNV) | payer OTHER, SELFPAY | PROVIDERS: PCP Internal Medicine; Visit Provider Internal Medicine | DX: E78.5 Hyperlipidemia, unspecified (principal); M75.41 Impingement syndrome of right shoulder; Z01.810 Encounter for preprocedural cardiovascular examination | CPT/HCPCS: 93010 ==

== ENCOUNTER 2024-07-11 09:17 | Day surgery (SDC) | payer OTHER, SELFPAY ==
--- NOTE | 2024-06-26 09:27 | ECG_ITS ---
Test Reason : pre op Blood Pressure : / mmHG Vent. Rate : 064 BPM Atrial Rate : 064 BPM P-R Int : 166 ms QRS Dur : 098 ms QT Int : 394 ms P-R-T Axes : 051 076 049 degrees QTc Int : 406 ms Normal sinus rhythm Normal ECG No previous ECGs available Referred By: Rupal Inman Electronically Signed By:CY HAMM
[2024-06-26 09:31] LABS: MANUAL DIFF FLAG NO
[2024-06-26 09:48] LABS: Basophils Percent Auto 0.4 % (0-2); Eosinophils Absolute Auto 0.3 X10*3/uL (0.0-0.4); Eosinophils Percent Auto 2.7 % (0-4); Hematocrit 43.6 % (42.0-52.0); Imm Gran Abs Auto 0.07 X10*3/uL (0.00-0.03); Imm Gran Pct Auto 0.7 % (0.0-0.4); Lymphocytes Absolute Auto 4.1 X10*3/uL (1.2-4.9); Lymphocytes Percent Auto 40.8 % (20-40); Mean Corpuscular HGB Conc 34.4 g/dl (31.0-36.0); Mean Corpuscular Hemoglobin 33.4 pg (27.0-33.0); Mean Corpuscular Volume 97.1 fL (80.0-98.0); Mean Platelet Volume 9.9 fL (9.4-12.4); Monocytes Absolute Auto 0.9 X10*3/uL (0.1-1.2); Monocytes Percent Auto 9.2 % (2-11); Neutrophils Absolute Auto 4.6 x10*3/uL (2.0-8.3); Neutrophils Percent Auto 46.2 % (45-73); Platelet Count 324 X10*3/uL (160-400); Red Blood Count 4.49 X10*6/uL (4.60-5.80); Red Cell Distribution Width 11.9 % (11.0-16.0); White Blood Count 9.9 X10*3/uL (4.8-10.8)
[2024-06-26 09:51] VITALS: BP 173/78; PULSE 79; RESP 16; O2SAT 97; BMI 29.8
[2024-06-26 09:56] LABS: Estimated Average Glucose 108 mg/dL; Hemoglobin A1C 139.5018 umol/L; Hemoglobin A1c % 5.4 % (<6.0); Total Hemoglobin (HGBA1C) 3938.7749 umol/L
[2024-06-26 10:49] LABS: Alanine Aminotransferase 43 U/L (0-40); Albumin Level 4.3 g/dL (3.5-5.0); Alkaline Phosphatase 81 U/L (39-117); Anion Gap 12 (12-20); Aspartate Amino Transferase 25 U/L (5-37); Bilirubin Total 0.4 mg/dL (0.0-1.0); Blood Urea Nitrogen 15 mg/dL (9-16); Calcium 9.8 mg/dL (8.4-10.2); Carbon Dioxide 26 mmol/L (22-29); Chloride 107 mmol/L (96-108); Creatinine Clr Calc Pharmacy 95.6; Estimated Glomerular Filt Rate > 60; Glucose Random 125 mg/dL (60-115); Potassium 4.1 mmol/L (3.3-5.1); Sodium 141 mmol/L (135-145)
[2024-07-11] VITALS (8 sets, daily range): BP systolic 132–177; BP diastolic 79–84; PULSE 60–75; RESP 16; TEMP 36.1–36.8; O2SAT 97–100; BMI 29.5
[2024-07-11] MEDS: Albuterol Sulfate (0.083%) 2.5 MG/3 ML VIAL.NEB INHALE (09:57)
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
[2024-07-11] MEDS: Lactated Ringers 1,000 ML 100 ML IVCONT (10:08)
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
--- NOTE | 2024-07-11 13:56 | PM.OP ---
Brief Operative Note Date of Service: 07/11/24 Pre-op diagnosis: Right shoulder impingement syndrome, right shoulder acromioclavicular joint arthritis, right shoulder rotator cuff tear Post-op diagnosis: same Procedure: Right shoulder diagnostic arthroscopy with right shoulder arthroscopic distal clavicle excision, right shoulder arthroscopic acromioplasty, right shoulder mini-open rotator cuff repair Implants: One suture anchor ([employer] Twinfix suture anchor with #2 Ultrabraid suture) Surgeon: Daniel Lopez MD Anesthesia: GETA and regional Was an Environmental Services Project Manager used for this Procedure?: No Estimated blood loss (mL): 20 Pathology: none sent Condition: stable Disposition: PACU
--- NOTE | 2024-07-11 13:58 | P.OP_ITS ---
Operative Note Operative Note Date of Service: 07/11/24 Narrative: After the patient was identified as Yefri Benz and his right shoulder was initialed by myself the patient was brought to the holding area where a right shoulder interscalene regional block was performed by the anesthesiologist in routine fashion. The patient was then brought to the operating room where general anesthesia was induced by the anesthesiologist in routine fashion. The patient was given 2 g of IV Ancef preoperatively for infection prophylaxis. Examination under anesthesia of the patient's right shoulder showed full passive range of motion of the patient's right shoulder when compared to the left. The patient was gently positioned in the beach chair position with all bony prominences well padded. The patient's right shoulder region and upper extremity were prepped and draped in sterile fashion. A formal time-out was completed. A #11 scalpel blade was used to make a posterior portal 2 cm inferior and 1 cm medial to the posterolateral corner of the acromion. Blunt trocar technique was used to enter the glenohumeral joint in routine fashion. An anterior portal was made just lateral to the coracoid process after proper positioning was confirmed using a spinal needle. Diagnostic arthroscopy showed minimal degenerative changes of the glenoid and humeral head articular surfaces. There was a full-thickness tear of the supraspinatus tendon. There was no evidence of injury to the biceps tendon or its insertion onto the glenoid. There was no inflammation of the anterior joint capsule. The arthroscope was then placed from the posterior portal into the subacromial space. A lateral portal was made 2 fingerbreadths lateral to the anterior lateral corner of the acromion. The ArthroCare Wand was used to ablate soft tissues along the undersurface of the acromion as well as to excise the coracoacromial ligament. There was a sharp spur along the undersurface of the acromion which was removed using the hooded bur. The arthroscope was then placed into the lateral portal and the acromioplasty was completed with the bur in the posterior portal using the posterior aspect of the acromion as a cutting block. The ArthroCare Wand was then brought in through the anterior portal and was used to ablate soft tissues along the acromioclavicular joint and distal clavicle. The posterior and superior ligamentous structures were left intact. A distal clavicle excision of 8 mm was performed using the hooded bur. Any remaining bursal tissue was removed using the arthroscopic shaver. The subacromial space was irrigated and then drained. All arthroscopic instruments were removed. Sterile gloves were changed and the shoulder was once again prepped with Betadine. A #15 scalpel blade was used to extend the lateral portal to the lateral edge of the acromion. The subacromial tissues were dissected using electrocautery down to the superficial deltoid fascia. The trocar split in the anterior raphe of the deltoid was then extended to the lateral edge of the acromion using el ectrocautery and curved Lockett scissors. Any remaining bursal tissue was removed using curved Lockett scissors. Subacromial and subdeltoid adhesions were bluntly dissected. The undersurface of the acromion was palpated and it was smooth. A #2 Ethibond tag suture was placed into the supraspinatus tendon. The tendon was easily mobilized to its insertion point on the glenoid. The wound was irrigated with copious amounts of normal saline solution. One suture anchor was placed into the greater tuberosity in routine fashion. The rotator cuff repair was then performed using horizontal mattress sutures under minimal tension with the patient's elbow at their side. Following the repair the shoulder was taken through a full range of motion. The repair was stable. The wound was irrigated with copious amounts of normal saline solution. The superficial and deep deltoid fascia were closed with #1 Vicryl [id number] interrupted suture. The wound was once again irrigated. The subcutaneous tissues were closed with 2-0 Vicryl interrupted suture. The skin was closed with 3-0 Prolene subcuticular suture and Steri-Strips. The anterior and posterior portals were closed with 3-0 nylon interrupted suture. Dry sterile dressing was placed over all incisions. The patient's right upper extremity was placed into a sling. The patient was awoken and extubated in the operating room. The patient was transferred to the recovery room in stable condition.
[2024-07-11] MEDS: cefTRIAXone sodium 1 GM VIAL IVPUSH (14:15)
== END 2024-07-11 14:53 | disposition home or self-care (01) ==
PROVIDERS: PCP Internal Medicine; Visit Provider Orthopaedic Surgery
PROC: (CPT 29805; principal; 2024-07-11 12:00)
DX: M75.101 Unspecified rotator cuff tear or rupture of right shoulder, not specified as traumatic (principal); M75.41 Impingement syndrome of right shoulder; M19.011 Primary osteoarthritis, right shoulder; E66.9 Obesity, unspecified; Z68.30 Body mass index [BMI] 30.0-30.9, adult; E78.5 Hyperlipidemia, unspecified; R03.0 Elevated blood-pressure reading, without diagnosis of hypertension; Z79.899 Other long term (current) drug therapy; Z87.828 Personal history of other (healed) physical injury and trauma; Z98.890 Other specified postprocedural states; Z87.891 Personal history of nicotine dependence
CPT/HCPCS: 23412; 29824; 29826; 36415; 80053; 83036; 85025; 93005; 94640; C1713; J0131; J0171; J0690; J0696; J1100; J1885; J2003; J2250; J2405; J2704; J2795; J3010

== ENCOUNTER → 2024-07-11 09:17 | Outpatient (BNV) | payer OTHER, SELFPAY | PROVIDERS: PCP Internal Medicine; Visit Provider Orthopaedic Surgery | DX: M75.41 Impingement syndrome of right shoulder (principal); M19.011 Primary osteoarthritis, right shoulder; S46.011A Strain of muscle(s) and tendon(s) of the rotator cuff of right shoulder, initial encounter | CPT/HCPCS: 23412; 29824 ==

== ENCOUNTER 2024-07-23 08:57 | Outpatient (AMB) | payer OTHER, SELFPAY ==
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
== END 2024-07-23 09:21 | disposition home or self-care (01) ==
PROVIDERS: PCP Internal Medicine; Visit Provider Orthopaedic Surgery
DX: M25.511 Pain in right shoulder (principal)
CPT/HCPCS: 99024

== ENCOUNTER 2024-09-03 08:39 | Outpatient (AMB) | payer OTHER, SELFPAY ==
[2024-09-03 08:43] VITALS: BMI 29.4
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
== END 2024-09-03 09:08 | disposition home or self-care (01) ==
PROVIDERS: PCP Internal Medicine; Visit Provider Orthopaedic Surgery
DX: M25.511 Pain in right shoulder (principal)
CPT/HCPCS: 99024

== ENCOUNTER → 2024-09-03 08:39 | Outpatient (BNVA) | payer OTHER, SELFPAY | PROVIDERS: PCP Internal Medicine; Visit Provider Orthopaedic Surgery ==

== ENCOUNTER 2024-11-04 08:55 | Outpatient (REF) | payer OTHER, SELFPAY ==
[2024-11-04 11:21] LABS: MANUAL DIFF FLAG NO
[2024-11-04 11:58] LABS: Appearance Urine Clear; Color Urine Yellow; Glucose Urine UA Negative (Negative); Leukocyte Esterase Urine Negative (Negative); Nitrite Urine Negative (Negative); PH 5.5 (5.0-9.0); Urine Blood Negative (Negative); Urine Ketones 40 mg/dL (Negative); Urine Protein Negative (Neg-Trace)
[2024-11-04 12:04] LABS: Basophils Absolute Auto 0.1 X10*3/uL (0.0-0.2); Basophils Percent Auto 0.5 % (0-2); Eosinophils Absolute Auto 0.1 X10*3/uL (0.0-0.4); Eosinophils Percent Auto 0.4 % (0-4); Imm Gran Pct Auto 0.8 % (0.0-0.4); Lymphocytes Absolute Auto 3.3 X10*3/uL (1.2-4.9); Lymphocytes Percent Auto 25.9 % (20-40); Mean Corpuscular HGB Conc 34.8 g/dl (31.0-36.0); Mean Corpuscular Hemoglobin 33.5 pg (27.0-33.0); Mean Corpuscular Volume 96.2 fL (80.0-98.0); Mean Platelet Volume 10.2 fL (9.4-12.4); Monocytes Percent Auto 7.8 % (2-11); Neutrophils Absolute Auto 8.1 x10*3/uL (2.0-8.3); Neutrophils Percent Auto 64.6 % (45-73); Platelet Count 347 X10*3/uL (160-400); Red Blood Count 4.78 X10*6/uL (4.60-5.80); White Blood Count 12.6 X10*3/uL (4.8-10.8)
[2024-11-04 13:06] LABS: Alanine Aminotransferase 43 U/L (0-40); Albumin Level 4.5 g/dL (3.5-5.0); Alkaline Phosphatase 101 U/L (39-117); Anion Gap 18 (12-20); Aspartate Amino Transferase 31 U/L (5-37); Bilirubin Total 1.3 mg/dL (0.0-1.0); Blood Urea Nitrogen 13 mg/dL (9-16); Calcium 9.1 mg/dL (8.4-10.2); Carbon Dioxide 22 mmol/L (22-29); Chloride 103 mmol/L (96-108); Estimated Glomerular Filt Rate > 60; Glucose Fasting 76 mg/dL (60-99); Potassium 3.9 mmol/L (3.3-5.1); Sodium 139 mmol/L (135-145); Total Protein 7.8 g/dL (6.5-8.0)
== END 2024-11-04 08:56 | disposition home or self-care (01) ==
LOC: HO.LAB 08:55
PROVIDERS: PCP Internal Medicine
DX: R10.9 Unspecified abdominal pain (principal); R03.0 Elevated blood-pressure reading, without diagnosis of hypertension; M25.511 Pain in right shoulder; E78.5 Hyperlipidemia, unspecified; M25.811 Other specified joint disorders, right shoulder; R20.0 Anesthesia of skin; R20.2 Paresthesia of skin
CPT/HCPCS: 36415; 80053; 81003; 85025; 96127

== ENCOUNTER 2024-11-04 08:55 | Outpatient (AMB) | payer OTHER, SELFPAY ==
[2024-11-04 09:08] VITALS: BP 148/82; PULSE 90; RESP 18; TEMP 37.1; O2SAT 97; BMI 30.7
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
== END 2024-11-04 10:08 | disposition home or self-care (01) ==
LOC: HO.HMCH 08:55
PROVIDERS: PCP Internal Medicine
DX: R20.0 Anesthesia of skin (principal); R20.2 Paresthesia of skin; R10.9 Unspecified abdominal pain; R03.0 Elevated blood-pressure reading, without diagnosis of hypertension

== ENCOUNTER 2024-11-05 07:32 | Outpatient (AMB) | payer OTHER, SELFPAY ==
[2024-11-05 07:35] VITALS: BMI 30.7
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
== END 2024-11-05 07:54 | disposition home or self-care (01) ==
LOC: HO.HOS 07:33
PROVIDERS: PCP Internal Medicine; Visit Provider Orthopaedic Surgery
DX: M25.511 Pain in right shoulder (principal)
CPT/HCPCS: 99213

== ENCOUNTER 2024-11-05 14:20 | Outpatient (REF) | payer OTHER, SELFPAY ==
--- NOTE | ~2024-11-05 | US_ITS ---
CLINICAL HISTORY: R10.9 - Unspecified abdominal pain US Renal Comparison: None Findings: Right kidney normal size and echotexture, 10.2 cm length. Left kidney normal size and echotexture, 10.3 cm length. 1.2 cm midpole cyst. No collecting system dilatation of either kidney. Normal color Doppler. IMPRESSION: Unremarkable renal ultrasound. This document has been electronically signed by: Wilder Huddleston MD on 11/05/2024 15:33:21
== END 2024-11-05 14:21 | disposition home or self-care (01) ==
LOC: HO.US 14:20
DX: R10.9 Unspecified abdominal pain (principal); R20.0 Anesthesia of skin; R20.2 Paresthesia of skin; M25.511 Pain in right shoulder
CPT/HCPCS: 76775

== ENCOUNTER → 2024-11-05 14:21 | Outpatient (BNV) | payer OTHER, SELFPAY | PROVIDERS: Visit Provider Nuclear Medicine | DX: R10.9 Unspecified abdominal pain (principal) | CPT/HCPCS: 76775 ==

== ENCOUNTER 2025-03-10 07:31 | Outpatient (AMB) | payer OTHER, SELFPAY ==
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
[2025-03-10 07:43] VITALS: BMI 30.7
== END 2025-03-10 07:50 | disposition home or self-care (01) ==
LOC: HO.HOS 07:31
PROVIDERS: PCP Internal Medicine; Visit Provider Orthopaedic Surgery
DX: M25.511 Pain in right shoulder (principal); R20.2 Paresthesia of skin
CPT/HCPCS: 99213; G2211

== ENCOUNTER 2025-04-29 15:41 | Outpatient (REF) | payer BC, SELFPAY ==
--- NOTE | ~2025-04-29 | XR_ITS ---
EXAMINATION: XR LUMBOSACRAL SPINE CLINICAL INFORMATION: R20.0 - Anesthesia of skin COMPARISON: None available. TECHNIQUE: Three views of the lumbosacral spine. FINDINGS: Moderate atherosclerotic calcification is present in the lower abdominal aorta. There are 5 nonrib-bearing lumbar segments. L1-2 demonstrates subtle retrolisthesis and mild to moderate disc space narrowing. L2-3 demonstrates subtle retrolisthesis. L3-4 demonstrates mild to moderate disc space narrowing and endplate osteophytes with facet sclerosis. L4-5 demonstrates minimal disc space narrowing and facet sclerosis. L5-S1 demonstrates moderate disc space narrowing with endplate osteophytes and sclerosis. There is also facet sclerosis. XR/XR lumbar spine 2-3V IMPRESSION: Degenerative disc disease and facet osteoarthritis. Electronically signed by: Bruce Keyes MD 04/29/2025 05:23 PM EDT
--- NOTE | ~2025-04-29 | XR_ITS ---
EXAMINATION: XR BILATERAL HIPS WITH AP PELVIS CLINICAL INFORMATION: R20.2 - Paresthesia of skin, numbness in the left upper lung, no trauma COMPARISON: None available. TECHNIQUE: AP and frog-leg lateral views of each hip and an AP view of the pelvis. FINDINGS: AP pelvis demonstrates minimal degenerative changes pubic symphysis joint. SI joints are symmetrical with minimal subchondral sclerosis. The right hip joint space is maintained. Small acetabular roof osteophyte is noted. Nonspecific degenerative cystic changes noted in the lateral femoral head. Left hip joint space is preserved. Small acetabular roof osteophyte is noted. XR/XR hip BI w PEL1V IMPRESSION: Minimal degenerative changes. Electronically signed by: Bruce Keyes MD 04/29/2025 05:21 PM EDT
== END 2025-04-29 15:42 | disposition home or self-care (01) ==
LOC: HO.XRAY 15:41
PROVIDERS: PCP Internal Medicine; Visit Provider Internal Medicine
DX: Z00.00 Encounter for general adult medical examination without abnormal findings (principal); E78.00 Pure hypercholesterolemia, unspecified; R03.0 Elevated blood-pressure reading, without diagnosis of hypertension; R20.2 Paresthesia of skin; R20.0 Anesthesia of skin; R79.89 Other specified abnormal findings of blood chemistry; E55.9 Vitamin D deficiency, unspecified; R97.20 Elevated prostate specific antigen [PSA]; E66.9 Obesity, unspecified; Z68.30 Body mass index [BMI] 30.0-30.9, adult
CPT/HCPCS: 72100; 73521; 96127

== ENCOUNTER 2025-04-29 15:41 | Outpatient (AMB) | payer BC, SELFPAY ==
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
[2025-04-29 15:49] VITALS: BP 150/70; PULSE 92; RESP 18; TEMP 36.3; O2SAT 97; BMI 30.9
[2025-04-29 16:23] VITALS: BP 160/90
== END 2025-04-29 16:27 | disposition home or self-care (01) ==
LOC: HO.HMCH 15:42
PROVIDERS: Visit Provider Internal Medicine
DX: Z00.00 Encounter for general adult medical examination without abnormal findings (principal); R20.2 Paresthesia of skin; E66.9 Obesity, unspecified; Z68.30 Body mass index [BMI] 30.0-30.9, adult; E78.00 Pure hypercholesterolemia, unspecified; R03.0 Elevated blood-pressure reading, without diagnosis of hypertension; R79.89 Other specified abnormal findings of blood chemistry; E55.9 Vitamin D deficiency, unspecified; R97.20 Elevated prostate specific antigen [PSA]

== ENCOUNTER → 2025-04-29 16:39 | Outpatient (BNV) | payer BC, SELFPAY | PROVIDERS: PCP Internal Medicine; Visit Provider Radiology Diagnostic Radiology | DX: M51.360 Other intervertebral disc degeneration, lumbar region with discogenic back pain only (principal); M25.751 Osteophyte, right hip | CPT/HCPCS: 72100; 73521 ==

== ENCOUNTER 2025-06-23 09:15 | Outpatient (REF) | payer BC, SELFPAY ==
--- NOTE | 2025-06-23 | EMG_ITS ---
Chief complaint:?R20.2 Paresthesia of skin Reason for referral: Paresthesia of left leg, persistent numbness of the lateral aspect of the left thigh Referred by:?Les Guthrie MD Procedure done: Left lower extremity NCS/EMG Left peroneal and tibial motor studies were performed. Left sural and superficial peroneal sensory studies were performed. Left tibial H-reflex was obtained. Left lateral femoral cutaneous sensory study was performed. EMG needle examination was performed. Findings: Motor studies were normal. Superficial peroneal and sural sensory studies did not reveal any significant abnormality. H-reflex was normal. Lateral femoral cutaneous amplitude was somewhat decreased. Long duration polyphasic potentials were noted in left mid to upper paraspinal and in vastus lateralis. Impression: 1. Left mid to upper lumbar radiculopathy 2. 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 [facility]
[2025-06-23 09:39] LABS: Hematocrit 47.7 % (42.0-52.0); Hemoglobin 15.6 g/dl (14.0-18.0); Imm Gran Abs Auto 0.10 X10*3/uL (0.00-0.03); Imm Gran Pct Auto 0.8 % (0.0-0.4); Lymphocytes Absolute Auto 5.3 X10*3/uL (1.2-4.9); MANUAL DIFF FLAG SCAN; Mean Corpuscular HGB Conc 32.7 g/dl (31.0-36.0); Mean Corpuscular Hemoglobin 31.9 pg (27.0-33.0); Mean Corpuscular Volume 97.5 fL (80.0-98.0); NRBC Abs Auto 0.000 X10*3/uL (0.0-0.012); NRBC Pct Auto 0.0 /100WBC (0.0-0.2); Platelet Count 325 X10*3/uL (160-400); Red Blood Count 4.89 X10*6/uL (4.60-5.80); SCAN SMEAR FLAG 1; White Blood Count 12.1 X10*3/uL (4.8-10.8)
[2025-06-23 10:19] LABS: Alanine Aminotransferase 50 U/L (0-40); Albumin Level 4.8 g/dL (3.5-5.0); Alkaline Phosphatase 96 U/L (39-117); Anion Gap 14 (12-20); Aspartate Amino Transferase 34 U/L (5-37); Blood Urea Nitrogen 14 mg/dL (9-16); Calcium 9.1 mg/dL (8.4-10.2); Carbon Dioxide 28 mmol/L (22-29); Chloride 105 mmol/L (96-108); Cholesterol 193 mg/dL (<200); Estimated Glomerular Filt Rate > 60; HDL Cholesterol 44 mg/dL (>40); Magnesium 2.0 mg/dL (1.6-2.6); Potassium 4.0 mmol/L (3.3-5.1); Sodium 143 mmol/L (135-145); Total Protein 7.4 g/dL (6.5-8.0); Triglycerides 116 mg/dL (<150)
[2025-06-23 10:36] LABS: Folate 5.8 ng/mL (> or = 4.0); Prostate Specific Antigen 11.44 ng/mL (<0.05-4.0); Vitamin B12 279 pg/mL (200-900)
[2025-06-23 11:51] LABS: Appearance Urine Clear; Glucose Urine UA Negative (Negative); PH 6.0 (5.0-9.0); Specific Gravity - Urine 1.010 (1.005-1.025)
== END 2025-06-23 09:16 | disposition home or self-care (01) ==
LOC: HO.NEURO 09:15
PROVIDERS: PCP Internal Medicine; Visit Provider Internal Medicine
DX: Z00.00 Encounter for general adult medical examination without abnormal findings (principal); R20.2 Paresthesia of skin; D64.9 Anemia, unspecified; E78.00 Pure hypercholesterolemia, unspecified; E53.8 Deficiency of other specified B group vitamins; N40.0 Benign prostatic hyperplasia without lower urinary tract symptoms; R30.0 Dysuria; Z12.5 Encounter for screening for malignant neoplasm of prostate; E55.9 Vitamin D deficiency, unspecified
CPT/HCPCS: 36415; 80053; 80061; 81003; 82306; 82607; 82746; 83735; 84153; 84443; 85025; 85652; 86140; 95886; 95909

== ENCOUNTER → 2025-06-23 10:00 | Outpatient (BNV) | payer BC, SELFPAY | PROVIDERS: PCP Internal Medicine; Visit Provider Psychiatry & Neurology Neurology | DX: M54.16 Radiculopathy, lumbar region (principal) | CPT/HCPCS: 95885; 95909 ==